=== PATIENT | male | born 1980 | race Caucasian/White ===

== ENCOUNTER 2017-08-14 23:27 | Emergency (ER) | payer MEDICARE ==
[2017-08-14 23:57] VITALS: BP 125/80; TEMP 98.2; O2SAT 100; BMI 18.6
--- NOTE | 2017-08-15 00:35 | ED PDOC ---
Arrival/HPI - General Chief Complaint: Weakness/Neurological Deficit Time Seen by Provider: 08/15/17 00:34 Historian: Patient - History of Present Illness Narrative History of Present Illness (Text): 08/15/17 00:34 37 y/o male, no pmh, nkda, c/o fatigue for the past 6 months. Pt. stated that he has been feeling fatigue for the past 6 months, no fever or chills, no coughing or night sweat, no dizziness, no rash, no numbness or tingling, no other medical or psychological complaints. Past Medical History - Provider Review Nursing Documentation Reviewed: Yes - Infectious Disease Hx of Infectious Diseases: None - Tetanus Immunization Tetanus Immunization: Unknown - Past Medical History Past Medical History: No Previous - Cardiac Hx Cardiac Disorders: No Hx Hypertension: No - Pulmonary Hx Tuberculosis: No - Neurological HX Cerebrovascular Accident: No Hx Seizures: No - HEENT Hx HEENT Disorder: No - Renal Hx Renal Disorder: No - Endocrine/Metabolic Hx Endocrine Disorders: No - Hematological/Oncological Hx Cancer: No - Integumentary Hx Dermatological Disorder: No - Musculoskeletal/Rheumatological Hx Musculoskeletal Disorders: No Hx Falls: No - Gastrointestinal Hx Gastrointestinal Disorders: No - Genitourinary/Gynecological Hx Sexually Transmitted Diseases: No - Psychiatric Hx Depression: No Hx Emotional Abuse: No Hx Physical Abuse: No Hx Substance Use: No - Past Surgical History Past Surgical History: No Previous - Suicidal Assessment Feels Threatened In Home Enviroment: No Family/Social History - Physician Review Nursing Documentation Reviewed: Yes Family/Social History: Unknown Family HX Smoking Status: Current Some Days Smoker Hx Alcohol Use: No Hx Substance Use: No Hx Substance Use Treatment: No Allergies/Home Meds Allergies/Adverse Reactions: Allergies No Known Allergies Allergy (Verified 08/14/17 23:57) Home Medications: Home Meds Medication Instructions Recorded Confirmed No Known Home Med [No Known Home 03/11/14 08/14/17 Med] Review of Systems - Review of Systems Constitutional: absent: Fatigue, Fevers Eyes: absent: Vision Changes ENT: absent: Hearing Changes Respiratory: absent: SOB, Cough Cardiovascular: absent: Chest Pain Gastrointestinal: absent: Abdominal Pain, Nausea, Vomiting Musculoskeletal: absent: Arthralgias, Back Pain, Myalgias Skin: absent: Rash, Pruritis, Skin Lesions Neurological: absent: Headache, Dizziness Psychiatric: absent: Anxiety, Depression Physical Exam Vital Signs Reviewed: Yes Vital Signs Temp Pulse Resp BP Pulse Ox 08/14/17 23:57 98.2 F 76 18 125/80 100 08/14/17 23:56 98.2 F 76 18 125/80 100 Temperature: Afebrile Blood Pressure: Normal Pulse: Regular Respiratory Rate: Normal Appearance: Positive for: Well-Appearing, Non-Toxic, Comfortable Pain Distress: None Mental Status: Positive for: Alert and Oriented X 3 - Systems Exam Head: Present: Atraumatic, Normocephalic Pupils: Present: PERRL Extroacular Muscles: Present: EOMI Conjunctiva: Present: Normal Mouth: Present: Moist Mucous Membranes Neck: Present: Normal Range of Motion Respiratory/Chest: Present: Clear to Auscultation, Good Air Exchange. No: Respiratory Distress, Accessory Muscle Use Cardiovascular: Present: Regular Rate and Rhythm, Normal S1, S2. No: Murmurs Abdomen: Present: Normal Bowel Sounds. No: Tenderness, Distention, Peritoneal Signs Back: Present: Normal Inspection Upper Extremity: Present: Normal Inspection. No: Cyanosis, Edema Lower Extremity: Present: Normal Inspection. No: Edema Neurological: Present: GCS=15, Speech Normal, Motor Func Grossly Intact, Gait Normal, Memory Normal Skin: Present: Warm, Dry, Normal Color. No: Rashes Psychiatric: Present: Alert, Oriented x 3, Normal Insight, Normal Concentration Medical Decision Making ED Course and Treatment: 08/15/17 00:34 -labs/ua -chest xray -observe and reassess 08/15/17 02:03 -Labs are non-significant -Chest xray show no active disease -Pt. has no urinary symptoms. -Pt. has no focal neurological deficits, stable to be discharged home and advised him to have continuous outpatient follow up with his own pmd. -Discharge home with education on follow up with your own pmd within 2 days, return to the ER for any new or worsening signs or symptoms. - Lab Interpretations Lab Results: 08/15/17 01:03 08/15/17 01:03 Lab Results 08/15/17 01:03: WBC 5.4 D, RBC 4.91, Hgb 14.4, Hct 42.5, MCV 86.6, MCH 29.3, MCHC 33.9, RDW 12.6, Plt Count 218, MPV 10.3, Gran % 46.9 L, Lymph % (Auto) 42.9 H, Pender % (Auto) 7.0 H, Eos % (Auto) 2.8, Baso % (Auto) 0.4, Gran # 2.55, Lymph # 2.3, Pender # 0.4, Eos # 0.2, Baso # 0.02 08/15/17 01:03: Sodium 141, Potassium 4.1, Chloride 104, Carbon Dioxide 28, Anion Gap 13, BUN 11, Creatinine 0.7 L, Est GFR ( Amer) > 60, Est GFR ( Non-Af Amer) > 60, Random Glucose 91, Calcium 9.6, Magnesium 2.0, Total Bilirubin 0.4, AST 20, ALT 24, Alkaline Phosphatase 42, Total Protein 7.2, Albumin 4.6, Globulin 2.6, Albumin/Globulin Ratio 1.7, Lipase 77 - RAD Interpretation Radiology Orders: 08/15/17 00:34 CHEST PORTABLE [RAD] Stat - PA / MENTAL HEALTH CASE MANAGER / Resident Statement MD/DO has reviewed & agrees with the documentation as recorded. Disposition/Present on Arrival - Present on Arrival Any Indicators Present on Arrival: No History of DVT/PE: No History of Uncontrolled Diabetes: No Urinary Catheter: No History of Decub. Ulcer: No History Surgical Site Infection Following: None - Disposition Have Diagnosis and Disposition been Completed?: Yes Diagnosis: Chronic fatigue Disposition: HOME/ ROUTINE Disposition Time: 02:04 Patient Plan: Discharge Condition: GOOD Additional Instructions: -Discharge home with education on follow up with your own pmd within 2 days, return to the ER for any new or worsening signs or symptoms. Referrals: [facility] [place] [facility] [place] - Follow up with primary Forms: WORK NOTE
[2017-08-15 01:11] LABS: BASO # 0.02 K/mm3 (0.0-2.0); BASO % 0.4 % (0.0-3.0); EOS # 0.2 (0.0-0.7); EOS % 2.8 % (1.5-5.0); GRAN # 2.55 (1.4-6.5); GRAN % 46.9 % (50.0-68.0); HEMOGLOBIN 14.4 g/dL (14.0-18.0); LYMPH # 2.3 (1.2-3.4); LYMPH % 42.9 % (22.0-35.0); MEAN CELL VOLUME 86.6 fl (80.0-105.0); MEAN CORPUSCULAR HEMOGLOBIN 29.3 pg (25.0-35.0); MEAN CORPUSCULAR HGB CONC 33.9 g/dl (31.0-37.0); MEAN PLATELET VOLUME 10.3 fl (7.0-11.0); MONO # 0.4 (0.1-0.6); RBC 4.91 10^6/uL (3.5-6.1); RED CELL DISTRIBUTION WIDTH 12.6 % (11.5-14.5); WHITE BLOOD COUNT 5.4 10^3/ul (4.5-11.0)
[2017-08-15 01:20] LABS: ALB/GLOB RATIO 1.7 (1.1-1.8); ALBUMIN 4.6 g/dL (3.0-4.8); ALT/SGPT 24 U/L (7-56); AST/SGOT 20 U/L (17-59); BLOOD UREA NITROGEN 11 mg/dL (7-21); CALCIUM 9.6 mg/dL (8.4-10.5); GFR AFRICAN-AMERICAN > 60; GFR NON-AFRICAN AMERICAN > 60; LIPASE 77 U/L (23-300)
[2017-08-15 02:12] VITALS: PULSE 63
[2017-08-15 02:13] VITALS: RESP 18
--- NOTE | 2017-08-15 13:22 | RAD ---
HISTORY: Medical clearance. COMPARISON: No prior. FINDINGS: LUNGS: No active pulmonary disease. PLEURA: No significant pleural effusion identified, no pneumothorax apparent. CARDIOVASCULAR: Normal. OSSEOUS STRUCTURES: There is very mild dextroscoliosis centered in the lower thoracic region. VISUALIZED UPPER ABDOMEN: Questionable old healed fracture deformity left posterior seventh rib. OTHER FINDINGS: 2 metallic prominence overlying the right and left base of neck with 2 metallic cylindrical opacities overlying the lower mediastinum likely represent overlying clothing artifact. IMPRESSION: No active disease.
== END 2017-08-15 02:13 | disposition home or self-care (01) ==
LOC: ED 23:27
DX: R53.83 Other fatigue (principal)